=== PATIENT | male | born 1940 | race Caucasian/White ===

== ENCOUNTER 2023-05-26 12:41 | Emergency (ER) | payer MEDICARE, SELFPAY ==
[2023-05-26] VITALS (14 sets, daily range): BP systolic 116; BP diastolic 68; PULSE 71–83; TEMP 36.6; O2SAT 97–100; BMI 21.1
--- NOTE | 2023-05-26 12:48 | ECG_ITS ---
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
--- NOTE | 2023-05-26 12:50 | XR_ITS ---
The [address] [address] Patient Name: GANGA TEJEDA MRN: [id number] date: 1940 Sex: M Assigned Patient Location: ER Current Patient Location: ED.MAIN Accession/Order Number: [id number] Exam Date: 05/26/2023 12:50 Report Date: 05/26/2023 13:27 At the request of: REGGIE SENA Procedure: XR chest 1V EXAMINATION: XR chest 1V HISTORY: Near syncope COMPARISON: No relevant comparison available. FINDINGS: LUNGS: Mild haziness within lateral left lung base. VASCULATURE: No increased pulmonary vasculature. PLEURA: No pneumothorax, effusion, or pleural thickening. CARDIAC: No cardiomegaly or cardiac silhouette abnormality. MEDIASTINUM: No visible mass or adenopathy. BONES: No fracture or visible bone lesion. OTHER: Negative. XR/XR chest 1V IMPRESSION: 1. Trace amount of lingular infiltrates versus atelectasis. Electronically authenticated by: HARINI RIZO Date: 05/26/2023 13:27
[2023-05-26 12:58] LABS: Hematocrit 47.1 % (42.0-54.0); Hemoglobin 15.5 g/dL (14.0-18.0); Mean Corpuscular HGB Conc 32.9 g/dL (29.9-35.2); Mean Corpuscular Hemoglobin 33.3 pg (25.9-34.0); Mean Corpuscular Volume 101.3 fL (80.0-94.0); Mean Platelet Volume 10.2 fL (9.5-13.5); Platelet Count 285 10^3/uL (150-450); Red Blood Count 4.65 10^6/uL (4.70-6.10); Red Cell Distribution Width 13.3 % (11.0-15.0); White Blood Count 11.1 10^3/uL (4.0-11.0)
[2023-05-26 13:17] LABS: Anion Gap 15.1; BUN Creatinine Ratio 23.7; Calcium 9.2 mg/dL (8.5-10.1); Carbon Dioxide 28.6 mmol/L (21.0-32.0); Chloride 104 mmol/L (98-107); Estimated GFR (African America >60 (>=60); Estimated GFR (Non-African Ame 52 (>=60); Glucose 134 mg/dL (74-106); Potassium 4.7 mmol/L (3.5-5.1); Sodium 143 mmol/L (136-145); Troponin I High Sensitivity 6.5 pg/mL (4.0-76.1)
[2023-05-26 13:36] LABS: Eosinophils Absolute Manual 0.33 10^3/uL (0.00-0.70); Lymphocytes Absolute Manual 0.55 10^3/uL (1.20-3.80); Monocytes Absolute Manual 0.33 10^3/uL (0.30-0.80); Segmented Neut Absolute Manual 9.87 10^3/uL (1.4-6.5)
[2023-05-26 13:37] LABS: Macrocytosis 1+
== END 2023-05-26 15:46 | disposition home or self-care (01) ==
PROVIDERS: Emergency Provider Emergency Medicine
DX: R55 Syncope and collapse (principal)
CPT/HCPCS: 36415; 71045; 80048; 84484; 85007; 85027; 93005; 99285